=== PATIENT | male | born 1985 | race Two or more races ===

== ENCOUNTER 2021-11-05 06:38 | Emergency (ER) | payer SELFPAY ==
[~2021-11-05] VITALS: Ht 180.3 cm; Wt 97.5 kg
[2021-11-05 06:44] VITALS: BP 134/70
--- NOTE | 2021-11-05 07:13 | NUR ---
PT DID NOT WANT OT WAIT FOR THE D/C PAPERS AND LEFT WITHOUT DISCCHARGE INSTRUCTIONS
== END 2021-11-05 07:14 | disposition home or self-care (01) ==
LOC: ER 06:40
DX: R46.1 Bizarre personal appearance (principal); Z60.2 Problems related to living alone